=== PATIENT | male | born 1985 | race Caucasian/White ===

== ENCOUNTER 2025-06-30 13:29 | Emergency (ER) | payer OTHER, SELFPAY ==
[2025-06-30 14:04] VITALS: BP 142/76; PULSE 64; RESP 16; TEMP 37.1; O2SAT 100; BMI 24.4
--- NOTE | 2025-06-30 16:12 | ED.EYEPROB ---
HPI - Eye Problem <Rama Jones PA-C - Last Filed: 06/30/25 17:38> General Chief complaint: Eye Problems Stated complaint: something stuck in right eye Time Seen by Provider: 06/30/25 14:29 Source: patient Mode of arrival: Ambulatory History of Present Illness HPI Narrative: Mr. Roth is a very pleasant 40-year-old gentleman who denies any past medical history, up-to-date on Tdap, lives on [address], who presents to the emergency department for right eye irritation/foreign body sensation since yesterday. Patient was cutting wood yesterday, wearing eye protection. Wood shavings got all over his face, he removed his glasses to wipe his face and believes he wipes some wood into his eye. His was actually able to remove a small piece of wood from his eye but he has continued to have irritation, tearing and foreign body sensation of the right eye. He denies glasses or contact lens use. His vision feels slightly blurred. No other symptoms or concerns. Related Data Home Medications ?Medication ?Instructions ?Recorded ?Confirmed naproxen sodium 275 mg tablet 275 mg PO PRN ##0 11/18/11 Previous Rx's ?Medication ?Instructions ?Recorded clindamycin HCl 300 mg capsule 300 mg PO Q6H #48 caps 09/21/17 sulfamethoxazole 800 1 tab PO BID #14 tabs 09/21/17 mg-trimethoprim 160 mg tablet Allergies Allergy/AdvReac Type Severity Reaction Status Date / Time Penicillins (PENICILLINS) Allergy Unknown HIVES Verified 06/30/25 14:05 Review of Systems <Rama Jones PA-C - Last Filed: 06/30/25 17:38> Review of Systems ROS Unobtainable: All systems reviewed & are unremarkable except as noted in HPI and below Patient History <Rama Jones PA-C - Last Filed: 06/30/25 17:38> Family History Father Age: 71 History of kidney cancer Hypertension High cholesterol Mother Age: 68 Hypertension High cholesterol Sister Age: 46 Depression Anxiety Social History Smoking Status: Never smoker Smoking Status: Never smoker Exam <Rama Jones PA-C - Last Filed: 06/30/25 17:38> Narrative Exam Narrative: GENERAL: 40 year old patient appears stated age. Well-developed patient, in no acute distress. HEAD: Atraumatic. Normocephalic. EYES: PERRL. Extraocular motions intact. Very mild injection of right sclera. Patient's upper eyelid was everted revealing erythema, no retained foreign body. Fluorescein exam was performed revealing a 3 mm linear corneal abrasion overlying the pupil. Negative Micheal sign. Visual powell full, gross vision intact. ENT: Nose without bleeding, purulent drainage. NECK: Trachea midline. Cervical ROM intact. CARDIOVASCULAR: Regular rate RESPIRATORY: ?Nonlabored respirations. ?Speaking in clear, full sentences. NEURO: AOx3. ?Clear speech. ?Moves all 4 extremities appropriately. SKIN: No rash or erythema of visible areas Initial Vital Signs Initial Vital Signs: Vital Signs Temperature 98.7 F 06/30/25 14:04 Pulse Rate 64 06/30/25 14:04 Respiratory Rate 16 06/30/25 14:04 Blood Pressure 142/76 H 06/30/25 14:04 Pulse Oximetry 100 06/30/25 14:04 Oxygen Delivery Method Room Air 06/30/25 14:04 <Clarisse Dorsey DO - Last Filed: 07/10/25 07:40> Initial Vital Signs Initial Vital Signs: Vital Signs Temperature 98.7 F 06/30/25 14:04 Pulse Rate 64 06/30/25 14:04 Respiratory Rate 16 06/30/25 14:04 Blood Pressure 142/76 H 06/30/25 14:04 Pulse Oximetry 100 06/30/25 14:04 Oxygen Delivery Method Room Air 06/30/25 14:04 Course <Rama Jones PA-C - Last Filed: 06/30/25 17:38> Orders Ordered: Discontinued Medications Erythromycin (Erythromycin Ophth 1 Gm Oint) 1 applic EYE-RIGHT NOW ONE Stop: 06/30/25 16:30 Last Admin: 06/30/25 16:38 Dose: 1 applic Documented By: RUFINO Fluorescein Sodium (Fluorescein 1 Mg Strip) 1 mg EYE-RIGHT NOW PRN PRN Reason: pain/possible foreign body Fluorescein Sodium (Fluorescein 1 Mg Strip) 1 mg EYE-LEFT NOW ONE Stop: 06/30/25 14:33 Last Admin: 06/30/25 16:15 Dose: 1 mg Documented By: AMPARO Proparacaine HCl (Proparacaine 0.5% Ophth Polina) 1 drops EYE-RIGHT PRN PRN PRN Reason: pain/possible foeign body Proparacaine HCl (Proparacaine 0.5% Ophth Polina) 1 drops EYE-LEFT NOW ONE Stop: 06/30/25 14:33 Last Admin: 06/30/25 16:14 Dose: 1 drop Documented By: AMPARO Vital Signs Vital signs: Vital Signs - 8 hr 06/30/25 14:04 06/30/25 17:06 Temperature 98.7 F 98.0 F Pulse Rate 64 75 Respiratory Rate 16 18 Blood Pressure 142/76 H 136/74 Pulse Oximetry 100 99 Oxygen Delivery Method Room Air Room Air <Clarisse Dorsey DO - Last Filed: 07/10/25 07:40> Orders Ordered: Discontinued Medications Erythromycin (Erythromycin Ophth 1 Gm Oint) 1 applic EYE-RIGHT NOW ONE Stop: 06/30/25 16:30 Last Admin: 06/30/25 16:38 Dose: 1 applic Documented By: RUFINO Fluorescein Sodium (Fluorescein 1 Mg Strip) 1 mg EYE-RIGHT NOW PRN PRN Reason: pain/possible foreign body Fluorescein Sodium (Fluorescein 1 Mg Strip) 1 mg EYE-LEFT NOW ONE Stop: 06/30/25 14:33 Last Admin: 06/30/25 16:15 Dose: 1 mg Documented By: AMPARO Proparacaine HCl (Proparacaine 0.5% Ophth Polina) 1 drops EYE-RIGHT PRN PRN PRN Reason: pain/possible foeign body Proparacaine HCl (Proparacaine 0.5% Ophth Polina) 1 drops EYE-LEFT NOW ONE Stop: 06/30/25 14:33 Last Admin: 06/30/25 16:14 Dose: 1 drop Documented By: AMPARO Vital Signs Vital signs: Vital Signs - 8 hr 06/30/25 14:04 06/30/25 17:06 Temperature 98.7 F 98.0 F Pulse Rate 64 75 Respiratory Rate 16 18 Blood Pressure 142/76 H 136/74 Pulse Oximetry 100 99 Oxygen Delivery Method Room Air Room Air MDM - Eye Problem <Rama Jones PA-C - Last Filed: 06/30/25 17:38> Medical Records Attestation: I reviewed the patient's medical records. [facility] Narrative Medical decision making narrative: 40-year-old gentleman who denies any past medical history, up-to-date on Tdap, lives [place] [address], who presents to the emergency department for right eye irritation/foreign body sensation since yesterday. Differential diagnosis includes but is not limited to corneal abrasion, foreign body conjunctivitis, etc. On exam patient is in no acute distress, nontoxic appearing, vital signs appropriate. He has mild injection of the right sclera, no obvious foreign body when gross vision and visual powell intact, pupils equal round reactive to light, no pain with EOMs. Fluorescein exam was performed revealing a 3 mm corneal abrasion, negative Micheal sign. No high impact mechanism, no contact lens use We will treat patient with a erythromycin ointment 4 times a day x5 days. We will provide with Ophthalmology follow up. First ointment dose given in the ED as patient does live on [address] will not be able to get to a pharmacy until tomorrow. Discussed strict ER return precautions. Patient verbalized understanding of all information agreeable with the plan. He is stable for discharge home. Discharge Plan Departure Patient Disposition: Home Clinical Impression: Corneal abrasion Qualifiers: Encounter type: initial encounter Laterality: right Qualified Code(s): S05.01XA - Injury of conjunctiva and corneal abrasion without foreign body, right eye, initial encounter Instructions: DI for Corneal Abrasion Activity Restrictions/Additional Instructions: Dear Mr. Roth, Thank you for coming to the emergency department. Today you were evaluated for suspected foreign body/injury to the right eye. Your physical exam did not reveal any retained pieces of wood however you do have a corneal abrasion in the center of the eye. This is a cut that will need time to heal in addition to topical antibiotics. Please apply the antibiotic ointment 4 times a day for the next 5 days. Please follow up with Ophthalmology, Dr. Shipley or Dr. Mesa, if needed. Antibiotic ointment was sent to [facility] in [place]. Return to ER immediately if you develop any new or worsening symptoms, fevers, increased redness around the eye or other concerns. Please follow up with your primary care doctor within the next 2-3 days for ER follow-up. (If you do not have a PCP you can call [phone]. ?to schedule an appointment with an [facility] Primary Care Provider) IF YOU DEVELOP ANY NEW OR WORSENING SYMPTOMS, RETURN TO THE ER! Please read the attached instructions, they highlight more specific treatments and interventions for you at home. Thank you for letting me participate in your care, Rama Jones PA-C Prescriptions: No Action naproxen sodium 275 MG tablet 275 mg PO PRN Qty: 0 sulfamethoxazole-trimethoprim 800 MG/160 MG tablet 1 tab PO BID Qty: 14 0RF clindamycin HCl 300 MG capsule 300 mg PO Q6H Qty: 48 0RF Referrals: Phong Isidro MD [Primary Care Provider, Family Practice] Stand Alone Forms: Patient Portal/API ED Sign-out <Clarisse Dorsey, - Last Filed: 07/10/25 07:40> Cosign ED Attending Johnny Attestation: I was available for consultation.
[2025-06-30] MEDS: PROPARACAINE 0.5% OPHTH SOL 1 DROPS EYE-LEFT (16:14)
[2025-06-30] MEDS: FLUORESCEIN 1 MG STRIP EYE-LEFT (16:15)
[2025-06-30] MEDS: ERYTHROMYCIN OPHTH 1 GM OINT 1 APPLIC EYE-RIGHT (16:38)
[2025-06-30 17:06] VITALS: BP 136/74; PULSE 75; RESP 18; TEMP 36.7; O2SAT 99
== END 2025-06-30 17:06 | disposition home or self-care (01) ==
PROVIDERS: Emergency Provider Physician Assistant; Family Provider Family Medicine; PCP Family Medicine
DX: S05.01XA Injury of conjunctiva and corneal abrasion without foreign body, right eye, initial encounter (principal)
CPT/HCPCS: 99282